=== PATIENT | female | born 1930 | race Two or more races ===

== ENCOUNTER → 2018-03-02 | Outpatient (CLI) | END | disposition home or self-care (01) ==

== ENCOUNTER → 2019-01-11 | Outpatient (CLI) | payer MEDICARE, MEDICAID ==
--- NOTE | 2019-01-11 18:26 | CONS ---
Consult Date/Type/Reason Admit Date/Time Initial Consult Date Date/Time of Note DATE: 01/11/19 TIME: 18:23 Subjective 88-year-old female following up today for her left knee osteoarthritis. She was last seen in March 2018. She was given a Monovisc injection at that time. She did have some relief with the injection but only lasted about 3 months. She is not a surgical candidate secondary significant cardiac comorbidities. She would like to continue conservative treatment with another injection today particularly a steroid injection. Denies any changes since her last visit. Objective Vitals Weight: 132 pounds Height: 5 foot 4 inches Temperature: 98.4 Heart Rate: 58 Blood Pressure: 172/71 Respiratory Rate: 14 Exam General: Alert, oriented x3. No Acute Distress. Heart: Regular rate and rhythm. Lungs: No respiratory distress. No accessory muscle use. Musculoskeletal: Left Knee This is a well developed female who is alert, oriented times three and in no apparent distress. Skin is intact over the left knee as well as the lower extremity with no abrasions, lacerations, or ulcerations. Observation of the patient's gait reveals an antalgic gait with large varus thrust. Frontal plane alignment is significant. There is pain on palpation of medial and lateral joint line. The patient demonstrates grinding anteriorly with ROM. Range of motion: 5 extension to approximately 110 degrees of flexion. Collateral ligament testing reveals no instability with varus or valgus stress at 0 and 30 degrees of flexion. Negative Walker's and negative posterior drawer. Neurovascularly intact with 5/5 EHL/tibialis anterior/gastroc. Sensation intact to light touch in a sural, saphenous, deep peroneal, superficial peroneal, medial and lateral plantar nerve distribution. Palpable, symmetric dorsalis pedis and posterior tibial pulses in both lower extremities. Hip examination normal. Results/Medications Imaging The patient received a standard set of films today that were personally reviewed. Imaging included a standing bilateral knee AP, PA flexion, merchant views and a dedicated lateral of the affected knee: There is varus alignment of the knee. There is complete loss of joint space medial compartment(s) and significant degeneration of the lateral and patellofemoral compartments. There is osteophyte formation. There is subchondral sclerosis. There are subchondral cysts. Degenerative changes are most severe in all 3 compartment(s) Assessment/Plan Hospital Course (Demo Recall) 88-year-old female with severe end-stage osteoarthritis of the left knee I would like to continue injection therapy at this time. She is not a surgical candidate secondary to significant cardiac comorbidities. If this injection fails. Recommending referral for genicular nerve block. Plan: Left knee steroid injection Low impact activities Ice Diclofenac gel Follow-up PRN Assessment/Plan (Daily) Left knee steroid injection procedure: Risks and benefits of steroid injection reviewed with patient. The risks include infection, failure, pain, swelling, nerve/tendon/ligament damage. The patient verbalized understanding and verbal consent was obtained prior to procedure. The left knee was prepped in a sterile fashion with alcohol and betadine the site of injection was confirmed. Lateral approach was used. The skin and capsule was anesthetized with 3mL 1% lidocaine. The left knee was injected with 2mL 1% lidocaine, 2mL 0.25% bupivacaine, 40mg Depo-Medrol. Injection flowed freely. Good hemostasis was achieved and no complications noted. The patient tolerated the procedure well. Limit activity and ice for 24-48 hours LYNDON HEAD MD January 11, 2019 18:26
--- NOTE | 2019-01-13 13:53 | RADRPT ---
PROCEDURE: XR bilateral knees CLINICAL INDICATION: Bilateral knee pain TECHNIQUE: Bilateral sunrise, AP weightbearing and PA tunnel weightbearing views, weight bearing la teral views of the left and right knees COMPARISON: DR BENITEZ 03/02/2018 FINDINGS: Right knee: Status post total right knee arthroplasty. No periprosthetic lucency or fracture. Mild o steopenia. Vascular calcifications. Trace joint fluid. Left knee: Mild osteopenia. No displaced fracture identified. Severe medial tibio-femoral compartmen t cartilage space narrowing with subchondral sclerosis and marginal osteophyte formation. General lemuel us. Marginal osteophyte formation in the lateral tibio-femoral compartment with mild chondrocalcinosi s and mild cartilage space narrowing. Marginal osteophyte formation in the patellofemoral compartment with mild to moderate cartilage space narrowing. Vascular calcifications. Small joint effusion. Surg ical clip in the medial posterior knee noted again. IMPRESSION: 1. Mild osteopenia. 2. Status post total right knee arthroplasty without radiographic evidence of hardware complication. 3. 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 RPTAT: BBDD Physician Ginna Date Time Electronically viewed and signed by Physician Ginna on 01/13/2019 13:52 TORY/
== END | disposition home or self-care (01) ==
LOC: HKI 15:08
PROVIDERS: ATTEND Orthopaedic Surgery Adult Reconstructive Orthopaedic Surgery
DX: M17.12 Unilateral primary osteoarthritis, left knee (principal)
CPT/HCPCS: 20610; 73564; G0463